=== PATIENT | female | born 1995 | race Caucasian/White ===

== ENCOUNTER 2018-08-10 16:29 | Emergency (ER) | payer OTHER ==
[~2018-08-10] VITALS: Ht 152.4 cm; Wt 62.7 kg
[2018-08-10 16:36] VITALS: Ht 152.4 cm; Wt 62.7 kg
[2018-08-10 20:40] VITALS: BP 123/73
== END 2018-08-10 20:37 | disposition home or self-care (01) ==
LOC: ED 16:29
DX: R07.89 Other chest pain (principal); R11.0 Nausea
CPT/HCPCS: J1885; Q0092

== ENCOUNTER 2019-03-15 15:55 | Emergency (ER) | payer OTHER ==
[~2019-03-15] VITALS: Ht 152.4 cm; Wt 63.0 kg
[2019-03-15 16:05] VITALS: Ht 152.4 cm; Wt 63.0 kg
[2019-03-15 18:15] VITALS: BP 104/71
== END 2019-03-15 18:15 | disposition home or self-care (01) ==
LOC: ED 15:55
DX: M54.12 Radiculopathy, cervical region (principal)
CPT/HCPCS: J1885

== ENCOUNTER 2020-07-20 17:11 | Emergency (ER) | payer OTHER ==
[2020-07-20] MEDS ORDERED: ANTIBIOTIC O500 U/GM TOP (19:17)
[2020-07-20] MEDS ORDERED: IBU600 M2 PO (19:17)
[2020-07-20 19:30] VITALS: BP 108/69
== END 2020-07-20 19:30 | disposition home or self-care (01) ==
LOC: ED 17:11
DX: S90.211A Contusion of right great toe with damage to nail, initial encounter (principal); X58.XXXA Exposure to other specified factors, initial encounter; Y93.89 Activity, other specified; Y92.89 Other specified places as the place of occurrence of the external cause; Y99.8 Other external cause status
CPT/HCPCS: J0153

== ENCOUNTER 2020-08-02 16:41 | Emergency (ER) | payer OTHER ==
[~2020-08-02] VITALS: Ht 154.9 cm; Wt 61.5 kg
[~2020-08-02 16:41] MED LIST: ANTIBIOTIC O500 U/GM TOP; IBU600 M2 PO
[2020-08-02 16:50] VITALS: BP 157/79; Ht 154.9 cm; Wt 61.5 kg
== END 2020-08-02 18:00 | disposition home or self-care (01) ==
LOC: ED 16:41
DX: S90.211A Contusion of right great toe with damage to nail, initial encounter (principal); L60.0 Ingrowing nail; X58.XXXA Exposure to other specified factors, initial encounter; Y93.89 Activity, other specified; Y92.89 Other specified places as the place of occurrence of the external cause; Y99.8 Other external cause status